=== PATIENT | female | born 1970 | race African-American/Black ===

== ENCOUNTER 2018-12-24 13:09 | Emergency (ER) | payer MEDICARE, MEDICAID ==
--- NOTE | 2018-12-24 14:11 | ER Document Report ---
ED Medical Screen (RME) - General Chief Complaint: Sickle Cell Crisis Stated Complaint: BACK PAIN Time Seen by Provider: 12/24/18 14:03 TRAVEL OUTSIDE OF THE [place] 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 Patient states that her pain started in her legs and now has been generalized. Patient states that this is the way her sickle cell crisises always present. She is visiting family from [place] and usually goes to the emergency department down there. Patient states that she has some mild chest discomfort, but is primarily to her back. She is eating and drinking without difficulty. She is urinating normally and having normal bowel movements. Patient states that she has not needed any transfusions since the ?80s. Patient states that she does see a horse doctor/oncologist in [place]. Denies DU, fever, neck pain, URI, SOB, Abd pain, dysuria, or rash. I have treated and performed a rapid initial assessment of this patient. A comprehensive ED assessment and evaluation of the patient, analysis of test results and completion of medical decision making process will be conducted by additional ED providers. PHYSICAL EXAMINATION: GENERAL: Well-appearing, well-nourished and in no acute distress. A&Ox4. Answers questions appropriately. LUNGS: Breath sounds clear to auscultation bilaterally and equal. No wheezes rales or rhonchi. HEART: Regular rate and rhythm without murmurs, rubs, gallops. Extremities: No cyanosis, clubbing, or edema b/l. NEUROLOGICAL: Normal speech, normal gait. PSYCH: Normal mood, normal affect. - Related Data Allergies/Adverse Reactions: escitalopram [From Lexapro] Allergy (Verified 12/24/18 13:10) Past Medical History - Social History Chew tobacco use (# tins/day): No Frequency of alcohol use: None Drug Abuse: None Renal/ Medical History: Denies: Hx Peritoneal Dialysis Psychiatric Medical History: Reports: Hx Bipolar Disorder Past Surgical History: Reports: Hx Tubal Ligation Physical Exam - Vital signs Vitals: Temp Pulse Resp BP Pulse Ox 98.5 F 128 H 18 128/77 H 97 12/24/18 13:21 12/24/18 13:21 12/24/18 13:21 12/24/18 13:21 12/24/18 13:21 Course - Vital Signs Vital signs: Temp Pulse Resp BP Pulse Ox 98.5 F 128 H 18 128/77 H 97 12/24/18 13:21 12/24/18 13:21 12/24/18 13:21 12/24/18 13:21 12/24/18 13:21
[2018-12-24] MEDS ORDERED: ONDANSETRON HCL INJ/PF 4 MG/2 ML SDV IV ONE (14:14)
[2018-12-24] MEDS ORDERED: DIPHENHYDRAMINE HCL 50 MG/ML VIAL IV ONE (14:14)
[2018-12-24] MEDS ORDERED: HYDROMORPHONE HCL INJ/PF 2 MG/ML AMPULE IV ONE ×2 (14:14→16:43)
[2018-12-24] MEDS: NORMAL SALINE 1000 ML 1,000 ML IV PRN ×2 (14:44→15:48)
[2018-12-24 15:11] LABS: ABSOLUTE LYMPHOCYTES (AUTO) 1.2 10^3/uL (0.5-4.7); ABSOLUTE MONOCYTES (AUTO) 0.5 10^3/uL (0.1-1.4); ABSOLUTE NEUT (AUTO) 2.4 10^3/uL (1.7-8.2); ABSOLUTE RETICS # 0.047 10^6/uL (0.028-0.122); BASOPHILS % (AUTO) 0.9 % (0-2); EOSINOPHILS % (AUTO) 0.3 % (0-6); HEMATOCRIT 34.3 % (36.0-47.0); HEMOGLOBIN 11.1 g/dL (12.0-15.5); LYMPHOCYTES % (AUTO) 29.8 % (13-45); MEAN CORPUSCULAR HEMOGLOBIN 26.1 pg (27.0-33.4); MEAN CORPUSCULAR HGB CONC 32.4 g/dL (32.0-36.0); MEAN CORPUSCULAR VOLUME 80 fl (80-97); MONOCYTES % (AUTO) 11.8 % (3-13); PLATELET COUNT 142 10^3/uL (150-450); RED BLOOD COUNT 4.26 10^6/uL (3.72-5.28); RED CELL DISTRIBUTION WIDTH 14.8 % (11.5-14.0); RETICULOCYTE COUNT (AUTO) 1.11 % (0.66-2.85); SEGMENTED NEUTROPHILS % (AUTO) 57.2 % (42-78); TOTAL CELLS COUNTED % (AUTO) 100 %; WHITE BLOOD COUNT 4.1 10^3/uL (4.0-10.5)
[2018-12-24 15:28] LABS: ALANINE AMINOTRANSFERASE 19 U/L (9-52); ALBUMIN 4.5 g/dL (3.5-5.0); ALKALINE PHOSPHATASE 62 U/L (38-126); ANION GAP 6 (5-19); ASPARTATE AMINO TRANSFERASE 29 U/L (14-36); BILIRUBIN,DIRECT 0.3 mg/dL (0.0-0.4); BILIRUBIN,TOTAL 0.9 mg/dL (0.2-1.3); BLOOD UREA NITROGEN 5 mg/dL (7-20); CALCIUM 9.4 mg/dL (8.4-10.2); CARBON DIOXIDE 30 mmol/L (22-30); CHLORIDE 106 mmol/L (98-107); GLUCOSE 92 mg/dL (75-110); POTASSIUM 4.2 mmol/L (3.6-5.0); SODIUM 141.6 mmol/L (137-145); TOTAL PROTEIN 7.9 g/dL (6.3-8.2)
[2018-12-24] MEDS ORDERED: KETOROLAC TROMETHAMINE INJ/PF 30 MG/1 ML SDV IV ONE (15:50)
--- NOTE | 2018-12-24 16:49 | RADIOLOGY REPORT (SQ) ---
EXAM DESCRIPTION: CHEST SINGLE VIEW COMPLETED DATE/TIME: 12/24/2018 4:26 pm REASON FOR STUDY: sickle, pain COMPARISON: None. EXAM PARAMETERS: NUMBER OF VIEWS: One view. TECHNIQUE: Single frontal radiographic view of the chest acquired. RADIATION DOSE: NA LIMITATIONS: None. FINDINGS: LUNGS AND PLEURA: Mild basilar interstitial markings. No consolidation, masses or pneumo thorax. No pleural effusion. MEDIASTINUM AND HILAR STRUCTURES: No masses. Contour normal. HEART AND VASCULAR STRUCTURES: Heart normal in size. Normal vasculature. BONES: No acute findings. HARDWARE: None in the chest. OTHER: No other significant finding. IMPRESSION: Mild basilar interstitial markings. No consolidation or pleural effusion. TECHNICAL DOCUMENTATION: JOB ID: [id number] 2010 [employer]- All Rights Reserved Reading location - IP/workstation name: [email or web address]
[2018-12-24 17:05] LABS: APPEARANCE,URINE SLIGHTLY-CLOUDY; BILIRUBIN,URINE NEGATIVE (NEGATIVE); COLOR,URINE YELLOW; GLUCOSE, URINE NEGATIVE (NEGATIVE); KETONES,URINE NEGATIVE (NEGATIVE); LEUKOCYTE ESTERASE,URINE NEGATIVE (NEGATIVE); NITRITE,URINE NEGATIVE (NEGATIVE); PROTEIN,URINE NEGATIVE (NEGATIVE); URINE SPECIFIC GRAVITY 1.009; UROBILINOGEN,URINE NEGATIVE mg/dL (<2.0)
--- NOTE | 2018-12-24 17:16 | ER Document Report ---
Entered by XENIA CONKLIN SCRIBE 12/24/18 [id number] Acting as scribe for:GEORGI VEGA DO ED General - General Chief Complaint: Sickle Cell Crisis Stated Complaint: BACK PAIN Time Seen by Provider: 12/24/18 14:03 Mode of Arrival: Ambulatory Information source: Patient Notes: Patient is a 48 year old female with sickle cell anemia presents to the emergency department complaining of being in a sickle cell crisis onset 4 days ago. Patient describes being in a crisis as aching in her lower back, thighs and hips. She states she is in [facility] and attributes weather changes to the cause of her crisis. She states this crisis has been more severe than priors. She also complains of some shortness of breath that is now resolved. Patient denies any vomiting or diarrhea. Patient received Dilaudid and Toradol in triage and states she feels a lot better. Patient is currently prescribed 4 mg of Dilaudid, 30 mg of oxycodone and 30 mg of OxyContin. TRAVEL OUTSIDE OF THE [place] IN LAST 30 DAYS: No - Related Data Allergies/Adverse Reactions: escitalopram [From Lexapro] Allergy (Verified 12/24/18 13:10) Past Medical History - General Information source: Patient - Social History Smoking Status: Current Every Day Smoker Chew tobacco use (# tins/day): No Frequency of alcohol use: None Drug Abuse: None Family History: Reviewed & Not Pertinent Patient has suicidal ideation: No Patient has homicidal ideation: No Psychiatric Medical History: Reports: Hx Bipolar Disorder Past Surgical History: Reports: Hx Tubal Ligation Review of Systems - Review of Systems Constitutional: No symptoms reported EENT: No symptoms reported Cardiovascular: No symptoms reported Respiratory: No symptoms reported Gastrointestinal: No symptoms reported Genitourinary: No symptoms reported Female Genitourinary: No symptoms reported Musculoskeletal: See HPI Skin: No symptoms reported Hematologic/Lymphatic: See HPI Neurological/Psychological: No symptoms reported -: Yes All other systems reviewed and negative Physical Exam - Vital signs Vitals: Temp Pulse Resp BP Pulse Ox 98.5 F 128 H 18 128/77 H 97 12/24/18 13:21 12/24/18 13:21 12/24/18 13:21 12/24/18 13:21 12/24/18 13:21 - Notes Notes: GENERAL: Alert, ambulates somewhat gingerly, interacts well. No acute distress. HEAD: Normocephalic, atraumatic. EYES: Pupils equal, round, and reactive to light. Extraocular movements intact. ENT: Oral mucosa moist, tongue midline. NECK: Full range of motion. Supple. Trachea midline. LUNGS: Clear to auscultation bilaterally, no wheezes, rales, or rhonchi. No respiratory distress. HEART: Regular rate and rhythm. No murmurs, gallops, or rubs. No longer tachycardic on my examination ABDOMEN: Soft, non-tender. Non-distended. Bowel sounds present in all 4 quadrants. No guarding, rigidity, or rebound. EXTREMITIES: Moves all 4 extremities spontaneously. Ambulates somewhat gingerly. NEUROLOGICAL: Alert and oriented x3. Normal speech. PSYCH: Normal affect, normal mood. SKIN: Warm, dry, normal turgor. No rashes or lesions noted. Course - Re-evaluation Re-evalutation: 12/24/18 17:13 CBC shows anemia with a hemoglobin 11.1, no need for transfusion at this time, slight low platelets at 142, absolute reticulocyte count 0.047, CMP unre markable, urinalysis unremarkable, chest x-ray shows no acute process. No evidence of acute chest syndrome, pain is significantly improved, patient has multiple pain relieving medications at home, patient agreeable to discharge after 2 doses of Dilaudid, liter fluid and treatment with Zofran and Toradol. Discharged home. - Vital Signs Vital signs: Temp Pulse Resp BP Pulse Ox 98.5 F 128 H 18 128/77 H 97 12/24/18 13:21 12/24/18 13:21 12/24/18 13:21 12/24/18 13:21 12/24/18 13:21 - Laboratory Result Diagrams: 12/24/18 14:47 12/24/18 14:47 Laboratory results interpreted by me: 12/24/18 12/24/18 14:47 14:47 Hgb 11.1 L Hct 34.3 L MCH 26.1 L RDW 14.8 H Plt Count 142 L BUN 5 L Discharge - Discharge Clinical Impression: Sickle cell pain crisis Condition: Stable Disposition: HOME, SELF-CARE Additional Instructions: Sickle Cell Crisis You have "sickle cell crisis." Sickle cell disease is caused by abnormal hemoglobin. This hemoglobin can deform red blood cells into a sickle shape. These abnormal blood cells can block blood vessels. This causes the pain of sickle cell crisis. Sickle cell crisis can occur any time. But attacks are more likely with acute infection, dehydration, or altitude change. A crisis usually causes pain in the legs, back, abdomen, and chest. Sometimes the pain may ease and return later. The usual treatment is oxygen, pain medication, IV fluids, and treatment of infection. Attacks may take a couple of days to resolve. Return if the pain becomes more severe, or if there are new symptoms. I personally performed the services described in the documentation, reviewed and edited the documentation which was dictated to the scribe in my presence, and it accurately records my words and actions.
[2018-12-24 18:06] VITALS: BP 122/76
== END 2018-12-24 18:05 | disposition home or self-care (01) ==
LOC: ER 13:09
DX: D57.00 Hb-SS disease with crisis, unspecified (principal); M54.5 Low back pain; R06.02 Shortness of breath; Z79.899 Other long term (current) drug therapy; F17.200 Nicotine dependence, unspecified, uncomplicated
CPT/HCPCS: 96376; 99284; 96361; 96374; 96375; 36415; 85025; 85045; 80053; 81001; 71045; J1200; J1885; J1170; J2405; J7030